=== PATIENT | male | born 1985 | race Caucasian/White ===

== ENCOUNTER 2018-09-09 09:01 | Emergency (ER) | payer MEDICAID ==
[~2018-09-09] VITALS: Ht 175.3 cm; Wt 91.2 kg
[2018-09-09 09:16] VITALS: BP 152/98
--- NOTE | 2018-09-09 09:19 | NUR ---
PT AMBULATED TO ER BED 02
--- NOTE | 2018-09-09 09:25 | NUR ---
BIB WITH C/O BOTTOM LT TOOTH ACHE THAT BROKE ABOUT A WK AGO WORSE THE LAST TWO DAYS WITH PAIN RADIATING TO THE WHOLE LT SIDE OF FACE AND HEAD. DENIES OTHER SYMPTOMS AT THIS TIME. STATES PAIN IS UNBEARABLE AT THIS TIME. DENIES VISITING DENIST.
[2018-09-09] MEDS ORDERED: IBUPROFEN 800 MG TAB PO ONE (10:20)
[2018-09-09] MEDS ORDERED: LIDOCAINE VISCOUS 2% 20 ML UDC PO ONE (10:20)
[2018-09-09 10:52] VITALS: BP 152/98
--- NOTE | 2018-09-09 10:53 | NUR ---
Patient discharged with v/s stable. Written and verbal after care instructions given and explained. Patient alert, oriented and verbalized understanding of instructions. Ambulatory with steady gait. All questions addressed prior to discharge. ID band removed. Patient advised to follow up with PMD. Rx of FIORICET given. Patient educated on indication of medication including possible reaction and side effects. Opportunity to ask questions provided and answered.
--- NOTE | 2018-09-09 10:55 | NUR ---
PT LEFT WITH DISCHARGE INFO OR MEDS ER MD NOTIFED
== END 2018-09-09 10:55 | disposition home or self-care (01) ==
LOC: MED 09:01
DX: K08.89 Other specified disorders of teeth and supporting structures (principal)
CPT/HCPCS: 99283